=== PATIENT | male | born 1995 | race Hispanic/Latino ===

== ENCOUNTER 2019-07-07 13:33 | Outpatient (CLI) | payer BC ==
--- NOTE | 2019-07-07 14:13 | RAD ---
RIGHT ANKLE RADIOGRAPHS THREE VIEWS: 07/07/2019 PROVIDED CLINICAL HISTORY: Pain and swelling without known injury. FINDINGS: There is no evidence for fracture or other acute osseous abnormality. Alignment appears anatomic. Nenita nt spaces appear preserved. IMPRESSION: No evidence for an acute osseous abnormality or significant arthropathy. POS: [facility]
--- NOTE | 2019-07-07 14:14 | RAD ---
RIGHT FOOT RADIOGRAPHS THREE VIEWS: 07/07/2019 PROVIDED CLINICAL HISTORY: Right foot pain. FINDINGS: There is no evidence for a fracture or other acute osseous abnormality. Alignment appears anatomic. J oint spaces appear preserved. IMPRESSION: No evidence for an acute osseous abnormality or significant arthropathy. POS: [facility]
== END 2019-07-07 13:34 | disposition home or self-care (01) ==
LOC: BICRAD 13:33
PROVIDERS: ATTEND Physician Assistant
DX: M25.571 Pain in right ankle and joints of right foot (principal); M79.671 Pain in right foot
CPT/HCPCS: 36415; 84550; 85025

== ENCOUNTER 2021-08-26 16:16 | Outpatient (CLI) | payer BC | END 2021-08-26 16:17 | disposition home or self-care (01) | LOC: RAD 16:16 | PROVIDERS: ATTEND Internal Medicine | DX: R05.9 Cough, unspecified (principal) | CPT/HCPCS: 71046 ==

== ENCOUNTER 2022-07-31 10:56 | Outpatient (CLI) | payer BC | END 2022-07-31 10:57 | disposition home or self-care (01) | LOC: BICRAD 10:56 | PROVIDERS: ATTEND Internal Medicine | DX: M25.532 Pain in left wrist (principal) ==